=== PATIENT | female | born 1980 | race Caucasian/White ===

== ENCOUNTER 2017-05-09 21:18 | Emergency (ER) | payer OTHER ==
[~2017-05-09] VITALS: Ht 165.1 cm; Wt 76.1 kg
[~2017-05-09 21:18] MED LIST: AZITTAB PO; CHOLCAP5 PO; NAPR-1169 PO; SERT1TAB71 PO; SIMV10TA5 PO; SITA50TA5 PO; SPIR50TA3 PO; ZOLP10TA6 PO
[2017-05-09 21:30] VITALS: TEMP 36.7; Ht 165.1 cm; Wt 76.1 kg
[2017-05-09] MEDS ORDERED: SODIUM CHLORIDE 0.9% 1000ML 1,000 ML IV STA ×2 (21:51)
[2017-05-09] MEDS ORDERED: ONDANSETRON INJ 2 MG/ML 2 ML VIAL IV STA (21:51)
[2017-05-09] MEDS ORDERED: LIDOCAINE HCL 2% VISC SOLN 20 ML UDC PO STA (21:51)
[2017-05-09] MEDS ORDERED: ALUMINUM/MAGNESIUM SUSP 30 ML UDC PO STA (21:51)
[2017-05-09] MEDS ORDERED: MULT-1042 PO (22:09)
[2017-05-09] MEDS ORDERED: CALC-335 PO (22:09)
[2017-05-09] MEDS ORDERED: PRLSR20 PO (22:09)
--- NOTE | 2017-05-09 22:11 | DIAGNOSTIC IMAGING REPORT ---
CHEST ONE VIEW PORTABLE CLINICAL HISTORY: Atypical chest pain COMPARISON STUDY: 12/22/2012 FINDINGS: The cardiac and mediastinal contours are normal. There is no evidence of focal pulmonary consolidation. There is no evidence of failure. No pleural effusions are visualized.[ IMPRESSION: No active disease in the chest. Electronically signed by: Edgar Sawyer M.D. 05/09/2017 10:10 PM Dictated Date/Time: 05/09/2017 10:09 PM
[2017-05-09 22:19] LABS: BASO % 0.3 %; BASO ABS # 0.02 K/uL (0-0.2); COMPLETE YES; EOS % 1.8 %; HEMATOCRIT 37.4 % (37-47); IG% 0.1 %; LYMPH % 28.7 %; LYMPH ABS # 2.25 K/uL (1.2-3.4); MEAN CELL VOLUME 88.6 fL (80-100); MEAN CORPUSCULAR HEMOGLOBIN 30.6 pg (25-34); MEAN CORPUSCULAR HGB CONC 34.5 g/dl (32-36); MONO % 8.5 %; NEUT % 60.6 %; PLATELET COUNT 278 K/uL (130-400); RED BLOOD COUNT 4.22 M/uL (4.2-5.4); WHITE BLOOD COUNT 7.84 K/uL (4.8-10.8)
[2017-05-09 22:39] LABS: ALT/SGPT 20 U/L (12-78); BLOOD UREA NITROGEN 8 mg/dl (7-18); BUN/CREATININE RATIO 14.1 (10-20); CALCIUM 9.3 mg/dl (8.5-10.1); CARBON DIOXIDE 26 mmol/L (21-32); CHLORIDE 110 mmol/L (98-107); CREATININE 0.58 mg/dl (0.60-1.20); GLUCOSE 118 mg/dl (70-99); POTASSIUM 3.5 mmol/L (3.5-5.1); SODIUM 144 mmol/L (136-145)
[2017-05-09 22:44] LABS: ALKALINE PHOSPHATASE 62 U/L (45-117); AST/SGOT 17 U/L (15-37)
[2017-05-09 22:58] LABS: URINE APPEARANCE CLEAR (CLEAR); URINE BILIRUBIN NEG (NEG); URINE COLOR YELLOW; URINE NITRITE NEG (NEG); URINE SPECIFIC GRAVITY 1.018 (1.000-1.030); UROBILINOGEN NEG (NEG); ZZUR CULT IF INDIC CLEAN CATCH NO
[2017-05-09 23:02] LABS: MANUAL MICROSCOPIC REQUIRED? NO; REVIEW REQ? NO
[2017-05-09 23:57] VITALS: O2SAT 96
[2017-05-10] MEDS ORDERED: PANTOprazole SOD 40 MG TAB PO STA (00:26)
[2017-05-10] MEDS ORDERED: OMEP20TA PO (01:25)
[2017-05-10 01:36] VITALS: BP 103/83; PULSE 56; O2SAT 96
--- NOTE | 2017-05-10 01:46 | EMERGENCY ROOM VISIT NOTE ---
History First contact with patient: 21:40 Chief Complaint: ABDOMINAL PAIN Stated Complaint: HORRIBLE STOMACH PAIN History of Present Illness The patient is a 36 year old female who presents to the Emergency Room with complaints of epigastric right upper quadrant discomfort with nausea for the past few hours after eating part of a chicken sandwich. Patient had gastric bypass back in December of this year. No complications with this. She describes the pain as burning, ranging in severity 6 out of 10. Nothing makes it better or worse. Patient denies vomiting, diarrhea, back pain, fevers, cold symptoms. No history of similar symptoms in the past. Patient is requesting that her daughter translates. Review of Systems See HPI for pertinent positives & negatives. A total of 10 systems reviewed and were otherwise negative. Past Medical/Surgical History Diabetes, GERD, gastric bypass, hyperlipidemia Social History Smoking Status: Never Smoker Drug Use: none Marital Status: Housing Status: lives with family Current/Historical Medications Scheduled Calcium Citrate-Vitamin D (Citracal Petites/Vitamin), 1 TAB PO DAILY Multiple Vitamins W/ Minerals (Multi Vitamin and Mineral), 1 TAB PO DAILY Omeprazole (Prilosec), 20 MG PO DAILY Omeprazole (Omeprazole), 2 TAB PO DAILY Simvastatin (Zocor), 10 MG PO HS Allergies Coded Allergies: No Known Allergies (Unverified , 05/09/17) Physical Exam Vital Signs Date Time Temp Pulse Resp B/P (MAP) Pulse Ox O2 Delivery O2 Flow Rate FiO2 05/10/17 01:36 56 18 103/83 96 Room Air 05/10/17 00:05 60 05/09/17 23:57 66 18 111/68 98 Room Air 05/09/17 23:57 96 Room Air 05/09/17 23:57 96 Room Air 05/09/17 22:23 62 18 111/71 99 Room Air 05/09/17 21:30 36.7 74 20 124/84 99 Room Air Physical Exam VITALS: Vitals are noted on the nurse's note and reviewed by myself. Vital signs stable. GENERAL: Pleasant female, in no acute distress, nondiaphoretic, well-developed well-nourished. SKIN: The skin was without rashes, erythema, edema, or bruising. There is no tenting of the skin. Capillary reflex less than 2 seconds. HEAD: Normocephalic atraumatic. EARS: External auditory canals clear, tympanic membranes pearly linda without erythema or effusion bilaterally. EYES: Pupils equal round and reactive to light and accommodation. Conjunctivae without injection, sclerae without icterus. Extraocular movements intact. NOSE: Patent, turbinates without inflammation or discharge. MOUTH: Mucous membranes moist. Pharynx without erythema or exudate. Uvula midline. Airway patent. Tongue does not deviate. NECK: Supple without nuchal rigidity. No lymphadenopathy. No thyromegaly. Cervical spine is nontender. No JVD. HEART: Regular rate and rhythm LUNGS: Clear to auscultation bilaterally without wheezes, rales or rhonchi. No dullness to percussion. No retractions or accessory muscle use. ABDOMEN: Positive bowel sounds x 4. Normal tympanic percussion. Soft, tender to palpation right upper quadrant epigastric region, no CVA tenderness, without masses or organomegaly. No guarding or rebound tenderness. MUSCULOSKELETAL: No muscle atrophy, erythema, or edema noted. NEURO: Patient was alert and oriented to person place and time. Normal sensation to light and sharp touch. No focal neurological deficits. Medical Decision & Procedures Laboratory Results 05/09/17 22:00 Red Blood Count 4.22, Mean Corpuscular Volume 88.6, Mean Corpuscular Hemoglobin 30.6, Mean Corpuscular Hemoglobin Concent 34.5, Mean Platelet Volume 10.0, Neutrophils (%) (Auto) 60.6, Lymphocytes (%) (Auto) 28.7, Monocytes (%) (Auto) 8.5, Eosinophils (%) (Auto) 1.8, Basophils (%) (Auto) 0.3, Neutrophils # (Auto) 4.75, Lymphocytes # (Auto) 2.25, Monocytes # (Auto) 0.67, Eosinophils # (Auto) 0.14, Basophils # (Auto) 0.02 05/09/17 22:00 Test 05/09/17 22:00 05/10/17 00:35 White Blood Count 7.84 K/uL (4.8-10.8) Red Blood Count 4.22 M/uL (4.2-5.4) Hemoglobin 12.9 g/dL (12.0-16.0) Hematocrit 37.4 % (37-47) Mean Corpuscular Volume 88.6 fL (80-100) Mean Corpuscular Hemoglobin 30.6 pg (25-34) Mean Corpuscular Hemoglobin Concent 34.5 g/dl (32-36) Platelet Count 278 K/uL (130-400) Mean Platelet Volume 10.0 fL (7.4-10.4) Neutrophils (%) (Auto) 60.6 % Lymphocytes (%) (Auto) 28.7 % Monocytes (%) (Auto) 8.5 % Eosinophils (%) (Auto) 1.8 % Basophils (%) (Auto) 0.3 % Neutrophils # (Auto) 4.75 K/uL (1.4-6.5) Lymphocytes # (Auto) 2.25 K/uL (1.2-3.4) Monocytes # (Auto) 0.67 K/uL (0.11-0.59) Eosinophils # (Auto) 0.14 K/uL (0-0.5) Basophils # (Auto) 0.02 K/uL (0-0.2) RDW Standard Deviation 38.6 fL (36.4-46.3) RDW Coefficient of Variation 12.0 % (11.5-14.5) Immature Granulocyte % (Auto) 0.1 % Immature Granulocyte # (Auto) 0.01 K/uL (0.00-0.02) Urine Color YELLOW Urine Appearance CLEAR (CLEAR) Urine pH 5.0 (4.5-7.5) Urine Specific [place] 1.018 (1.000-1.030) Urine Protein NEG (NEG) Urine Glucose (UA) NEG (NEG) Urine Ketones NEG (NEG) Urine Occult Blood 2+ (NEG) Urine Nitrite NEG (NEG) Urine Bilirubin NEG (NEG) Urine Urobilinogen NEG (NEG) Urine Leukocyte Esterase TRACE (NEG) Urine WBC (Auto) 1-5 /hpf (0-5) Urine RBC (Auto) 0-4 /hpf (0-4) Urine Hyaline Casts (Auto) 1-5 /lpf (0-5) Urine Epithelial Cells (Auto) 10-20 /lpf (0-5) Urine Bacteria (Auto) NEG (NEG) Anion Gap 8.0 mmol/L (3-11) Est Creatinine Clear Calc Drug Dose 138.1 ml/min Estimated GFR () 138.4 Estimated GFR (Non- 119.4 BUN/Creatinine Ratio 14.1 (10-20) Calcium Level 9.3 mg/dl (8.5-10.1) Total Bilirubin 0.2 mg/dl (0.2-1) Direct Bilirubin < 0.1 mg/dl (0-0.2) Aspartate Amino Transf (AST/SGOT) 17 U/L (15-37) Alanine Aminotransferase (ALT/SGPT) 20 U/L (12-78) Alkaline Phosphatase 62 U/L (45-117) Total Protein 7.3 gm/dl (6.4-8.2) Albumin 4.0 gm/dl (3.4-5.0) Lipase 270 U/L (73-393) Troponin I < 0.015 ng/ml (0-0.045) Medications Administered Medications (Trade) Dose Ordered Sig/Oscar Route Start Time Stop Time Status Last Admin Dose Admin Lidocaine HCl (Viscous Lidocaine 2% Soln) 10 ml NOW STAT PO 05/09/17 21:51 05/09/17 21:54 DC 05/09/17 21:51 10 ML Al Hydroxide/Mg Hydroxide (Maalox Susp) 30 ml NOW STAT PO 05/09/17 21:51 05/09/17 21:54 DC 05/09/17 21:51 30 ML Sodium Chloride 1,000 ml @ 999 mls/hr Q1H1M STAT IV 05/09/17 21:51 05/09/17 22:51 DC 05/09/17 21:51 999 MLS/HR Sodium Chloride 1,000 ml @ 125 mls/hr Q8H STAT IV 05/09/17 21:51 05/10/17 05:50 05/09/17 21:51 125 MLS/HR Ondansetron HCl (Zofran Inj) 4 mg NOW STAT IV 05/09/17 21:51 05/09/17 21:54 DC 05/09/17 21:51 4 MG Pantoprazole Sodium (Protonix Tab) 40 mg NOW STAT PO 05/10/17 00:26 05/10/17 00:27 DC 05/10/17 01:00 40 MG ED Course Prior records/ancillary studies reviewed. Triage Nursing notes reviewed. Additional history obtained from family. The patient's history was concerning for epigastric abdominal pain. Differential diagnosis: Etiologies such as cardiac, appendicitis, diverticulitis, PUD, biliary pathology , UTI, pancreatitis, obstruction, mesenteric ischemia, aortic pathology, infections, inflammatory bowel disease, renal colic, as well as others were entertained. Physical examination findings: As above. ER treatment provided: GI cocktail, IV fluids On reassessment the patient felt better. Diagnostics interpreted by me: ECG: Normal sinus, normal intervals, T wave in lead 3, no other acute ST-T wave changes, rate of 64. Impression normal sinus rhythm interpreted by myself The labs revealed 2 negative troponins that were greater than 2 hours apart, negative leukocytosis No Leukocytosis Imaging studies: CHEST ONE VIEW PORTABLE CLINICAL HISTORY: Atypical chest pain COMPARISON STUDY: 12/22/2012 FINDINGS: The cardiac and mediastinal contours are normal. There is no evidence of focal pulmonary consolidation. There is no evidence of failure. No pleural effusions are visualized.[ IMPRESSION: No active disease in the chest. Ultrasound negative for cholecystitis per radiology Electronically signed by: Edgar Sawyer M.D. Exam and history seem consistent with epigastric discomfort most likely related to gastritis. Patient felt much better after being medicated as above. Patient was neurovascularly and neurologically intact. She did not have acute abdomen on exam. She is tolerating fluids. She is advised to take medications as directed and to follow-up family care in a few days or here in the ER sooner for chest pain, difficulty breathing, abdominal pain, worsening signs or symptoms or as needed.By the evaluation outlined above emergent etiologies such as appendicitis, diverticulitis, PUD, biliary pathology, UTI, pancreatitis, obstruction, mesenteric ischemia, aortic pathology, infections, inflammatory bowel disease, renal colic, as well as others were deemed relatively unlikely. The pt informed about the findings as listed above. All questions were answered and pleased with the treatment. Return instructions were outlined and the patient was discharged in stable condition. Outpatient prescription management: Omeprazole 40 mg Referral: The patient was referred back to their primary care physician for follow-up in 2 to 3 days for a recheck of the current condition. Case reviewed with my attending Medical Decision As above Impression Primary Impression: Abdominal discomfort, epigastric Additional Impression: Gastritis Departure Information Prescriptions Omeprazole (OMEPRAZOLE) 20 Mg Tab 2 TAB PO DAILY for 14 Days, #28 TAB 1 Refill Prov: Wendy Mora ., LINDA 05/10/17 Referrals Kailyn Walsh DO (PCP) Patient Instructions My [facility] Problem Qualifiers
--- NOTE | 2017-05-10 05:34 | DIAGNOSTIC IMAGING REPORT ---
GALLBLADDER-ABD LIMITED CLINICAL HISTORY: 36 years-old Female presenting with ruq pain. TECHNIQUE: Real-time grayscale and limited color Doppler ultrasound imaging of the abdomen limited to the right upper quadrant was performed. COMPARISON: 12/11/2011. FINDINGS: Pancreas: Visualized portions of the pancreatic head and body normal. Liver: Mildly hyperechogenic parenchyma, although the right hemidiaphragm remains visible, likely indicating mild steatosis. The liver measures 17.3 cm in maximal sagittal dimension. No sonographic evidence of hepatic mass. Main portal vein patent with normal directional flow. Biliary: No intrahepatic biliary ductal dilatation. Common bile duct measures up to 3-5 mm in diameter. Gallbladder: No evidence of gallstones, gallbladder wall thickening, gallbladder distention, or pericholecystic fluid or inflammatory change. Right kidney: Normal in appearance and size, measuring 13.2 cm. No hydronephrosis. Ascites: None. IMPRESSION: 1. Suggestion of mild hepatic steatosis. Mild hepatomegaly. These findings are unchanged since 2011. 2. No cholelithiasis or cholecystitis. Electronically signed by: Rene Giron M.D. 05/10/2017 5:33 AM Dictated Date/Time: 05/10/2017 5:31 AM
== END 2017-05-10 01:43 | disposition home or self-care (01) ==
LOC: C.EDB 21:19
DX: R10.13 Epigastric pain (principal); K29.70 Gastritis, unspecified, without bleeding; E11.9 Type 2 diabetes mellitus without complications; K21.9 Gastro-esophageal reflux disease without esophagitis; E78.5 Hyperlipidemia, unspecified

== ENCOUNTER → 2017-06-11 | Outpatient (CLI) | payer OTHER ==
[~2017-06-11] MED LIST changes: -AZITTAB PO; +CALC-335 PO; -CHOLCAP5 PO; +MULT-1042 PO; -NAPR-1169 PO; +OMEP20TA PO; +PRLSR20 PO; -SERT1TAB71 PO; -SITA50TA5 PO; -SPIR50TA3 PO; -ZOLP10TA6 PO
--- NOTE | 2017-06-11 09:44 | DIAGNOSTIC IMAGING REPORT ---
GI SERIES W/O KUB CLINICAL HISTORY: 36 years-old Female with ABD PAIN. Acute epigastric abdominal pain after eating. History of prior gastric bypass December 2016 TECHNIQUE: A standard air contrast upper GI series was performed following administration of barium and effervescent crystals. Multiple spot fluoroscopic images were obtained and provided for review. COMPARISON STUDY: None available FLUOROSCOPY TIME: 1.3 minutes. FINDINGS: The patient swallowed barium without difficulty. No aspiration was definitively visualized. The esophagus distended normally with barium and effervescent crystals. No strictures, mucosal ulcerations, or intraluminal mass lesions were identified involving the esophagus. There was no significant gastroesophageal reflux. Barium was seen to flow freely through the gastroesophageal junction. No active reflux was identified. Evaluation of the stomach demonstrates no gastric mucosal irregularity or filling defect. Postoperative changes compatible with prior Bruno-en-Y gastric bypass are seen. No evidence of anastomotic dehiscence, leaking or stricturing. The gastrojejunal and jejunojejunal anastomosis appear intact. No reflux into the excluded biliary limb identified on this study. IMPRESSION: 1. Prior Bruno-en-Y gastric bypass without evidence of anastomotic dehiscence, anastomotic leaking or stricturing. 2. No reflux identified. The above report was generated using voice recognition software. It may contain grammatical, syntax or spelling errors. Electronically signed by: Jasper Perales M.D. 06/11/2017 9:38 AM Dictated Date/Time: 06/11/2017 9:32 AM
== END | disposition home or self-care (01) ==
LOC: C.RAD 08:49
PROVIDERS: ATTEND Internal Medicine
DX: R10.13 Epigastric pain (principal); Z98.84 Bariatric surgery status; K91.2 Postsurgical malabsorption, not elsewhere classified

== ENCOUNTER 2017-06-17 15:20 | Emergency (ER) | payer OTHER ==
[~2017-06-17] VITALS: Ht 162.6 cm; Wt 72.9 kg
[2017-06-17 15:23] VITALS: TEMP 36.6; Ht 162.6 cm; Wt 72.9 kg
[2017-06-17] MEDS ORDERED: ALUMINUM/MAGNESIUM SUSP 30 ML UDC PO STA (15:44)
[2017-06-17] MEDS ORDERED: ONDANSETRON INJ 2 MG/ML 2 ML VIAL IV STA (15:44)
--- NOTE | 2017-06-17 16:13 | DIAGNOSTIC IMAGING REPORT ---
CHEST ONE VIEW PORTABLE HISTORY: 36 years-old Female ABDOMINAL PAIN/GI acute generalized abdominal pain COMPARISON: Chest radiograph 05/09/2017 TECHNIQUE: Portable upright AP view of the chest FINDINGS: Cardiomediastinal and hilar silhouettes are within normal limits. No pneumothorax, pleural effusion, focal airspace consolidation or overt pulmonary edema. Bones of the chest are grossly intact. IMPRESSION: No acute cardiopulmonary process. The above report was generated using voice recognition software. It may contain grammatical, syntax or spelling errors. Electronically signed by: Jasper Perales M.D. 06/17/2017 4:12 PM Dictated Date/Time: 06/17/2017 4:11 PM
[2017-06-17 16:38] LABS: URINE APPEARANCE CLEAR (CLEAR); URINE BILIRUBIN NEG (NEG); URINE COLOR DK YELLOW; URINE NITRITE NEG (NEG); URINE PH 5.5 (4.5-7.5); URINE SPECIFIC GRAVITY 1.016 (1.000-1.030); UROBILINOGEN NEG (NEG)
[2017-06-17 16:38] LABS: BASO % 0.2 %; BASO ABS # 0.02 K/uL (0-0.2); COMPLETE YES; EOS % 0.7 %; HEMATOCRIT 39.5 % (37-47); IG% 0.2 %; LYMPH % 22.4 %; MEAN CELL VOLUME 87.6 fL (80-100); MEAN CORPUSCULAR HEMOGLOBIN 30.6 pg (25-34); MEAN CORPUSCULAR HGB CONC 34.9 g/dl (32-36); MEAN PLATELET VOLUME 10.2 fL (7.4-10.4); MONO % 3.6 %; NEUT % 72.9 %; PLATELET COUNT 277 K/uL (130-400); RED BLOOD COUNT 4.51 M/uL (4.2-5.4); WHITE BLOOD COUNT 9.36 K/uL (4.8-10.8)
[2017-06-17 16:49] LABS: MANUAL MICROSCOPIC REQUIRED? NO; REVIEW REQ? NO
[2017-06-17 16:55] LABS: INR 1.1 (0.9-1.1); PROTHROMBIN TIME (PATIENT) 11.9 SECONDS (9.0-12.0)
[2017-06-17 16:59] LABS: ALT/SGPT 19 U/L (12-78); BLOOD UREA NITROGEN 7 mg/dl (7-18); BUN/CREATININE RATIO 13.6 (10-20); CALCIUM 9.3 mg/dl (8.5-10.1); CARBON DIOXIDE 27 mmol/L (21-32); CHLORIDE 106 mmol/L (98-107); CREATININE 0.53 mg/dl (0.60-1.20); GLUCOSE 93 mg/dl (70-99); POTASSIUM 3.4 mmol/L (3.5-5.1); SODIUM 140 mmol/L (136-145)
[2017-06-17 17:04] LABS: ALKALINE PHOSPHATASE 63 U/L (45-117); AST/SGOT 17 U/L (15-37)
--- NOTE | 2017-06-17 17:04 | DIAGNOSTIC IMAGING REPORT ---
ABD/PELVIS NO IV OR ORAL CONT HISTORY: 36 years-old Female left flank pain acute left-sided flank pain. Initial exam. History of hepatosplenomegaly and hepatic steatosis. History of prior Bruno-en-Y gastric bypass. COMPARISON: Upper GI series 06/11/2017, abdominal ultrasound 05/09/2017 and 12/11/2011 TECHNIQUE: Multiple axial CT images of the abdomen and pelvis were obtained without contrast. FINDINGS: Imaged lung bases are clear. There is no pneumoperitoneum. Imaged inferior cardiac chambers are unremarkable. Evaluation of the solid abdominal organs is limited without the use of contrast. Within the limitations of the study, the liver is mildly enlarged without focal mass or intrahepatic biliary ductal dilation. No evidence of fatty infiltration. Spleen is upper limits of normal at 13 cm in length. Pancreas, gallbladder and adrenal glands are within normal limits. Kidneys, ureters and urinary bladder are unremarkable. There is an intrauterine device present within the mid and fundal uterus which appears to be in satisfactory position. No adnexal mass lesions identified. No significant free pelvic fluid identified. The abdominal aorta is normal in both course and caliber. No bulky adenopathy. Postsurgical changes of prior Bruno-en-Y gastric bypass. No evidence of bowel obstruction. Small air-fluid level of the jejunojejunal anastomosis, likely physiologic. The excluded biliary limb is predominantly collapsed. The large bowel is within normal limits. The appendix is dilated and fluid-filled measuring up to 1.7 x 1.7 cm demonstrating peripheral calcification as seen on image 273 of series 3, however there are no associated inflammatory changes involving the appendix. No perforation or abscess. Soft tissues are unremarkable. Bones appear intact. A few Schmorl's nodes of the thoracic spine. IMPRESSION: 1. Distended fluid-filled appendix measuring up to 1.7 cm with peripheral calcifications is noted without associated surrounding inflammatory changes or evidence of perforation. Differential considerations would include an appendiceal mucocele or mucinous neoplasm such as a mucinous cystadenoma or mucinous cystadenocarcinoma. Surgical consultation recommended. 2. Prior Bruno-en-Y gastric bypass without evidence of complication or bowel obstruction. 3. No renal calculi or hydronephrosis. 4. IUD in situ. The above report was generated using voice recognition software. It may contain grammatical, syntax or spelling errors. Electronically signed by: Jasper Perales M.D. 06/17/2017 5:03 PM Dictated Date/Time: 06/17/2017 4:46 PM
[2017-06-17] MEDS ORDERED: ACETAMINOPHEN 500 MG TAB PO STA (17:26)
--- NOTE | 2017-06-17 17:43 | EMERGENCY ROOM VISIT NOTE ---
History Report prepared by Tia: Monserrat Wu Under the Supervision of: Dr. Yonatan Wilson D.O. 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 The customer and the fax machine repairer got into a disagreement with the patient and she felt that they were ganging up on her. She became upset and started to cry. The patient suddenly developed left flank pain that she states feels like needles stabbing her. She also has some epigastric abdominal pain. The patient reports feeling tired. She takes Prilosec daily. 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 A total of 10 systems reviewed and were otherwise negative. Past Medical & Surgical Medical Problems: (1) Diabetes (2) Hyperlipidemia (3) Infected skin lesion Family History Patient reports no known family medical history. Social History Smoking Status: Never Smoker Smokeless Tobacco Use: No Alcohol Use: none Drug Use: none Marital Status: Housing Status: lives with family Current/Historical Medications Scheduled Calcium Citrate-Vitamin D (Citracal Petites/Vitamin), 1 TAB PO DAILY Multiple Vitamins W/ Minerals (Multi Vitamin and Mineral), 1 TAB PO DAILY Omeprazole (Prilosec), 20 MG PO BID Simvastatin (Zocor), 10 MG PO HS Allergies Coded Allergies: No Known Allergies (Unverified , 06/17/17) Physical Exam Vital Signs Date Time Temp Pulse Resp B/P (MAP) Pulse Ox O2 Delivery O2 Flow Rate FiO2 06/17/17 17:53 61 16 113/79 98 06/17/17 15:23 36.6 69 18 132/91 98 Room Air Physical Exam GENERAL: Patient is awake, alert, mildly anxious and tearful appearing. EYES: The conjunctivae are clear. The pupils are round and reactive. EARS, NOSE, MOUTH AND THROAT: The nose is without any evidence of any deformity. Mucous membranes are moist tongue is midline NECK: The neck is nontender and supple. RESPIRATORY: Normal respiratory effort is noted there is no evidence of wheezing rhonchi or rales CARDIOVASCULAR: Regular rate and rhythm noted there no murmurs rubs or gallops normal S1 normal S2 GASTROINTESTINAL: The abdomen is mildly distended but soft. Bowel sounds are present in all quadrants. Epigastric TTP, no guarding or rigidity. BACK: Bilateral CVA TTP. No midline tenderness or or step-off noted range of motion in flexion extension as well as rotation no signs of muscle spasm noted MUSCULOSKELETAL/EXTREMITIES: There is no evidence of gross deformity full range of motion is noted in the hips and shoulders SKIN: There is no obvious evidence of any rash. There are no petechiae, pallor or cyanosis noted. NEUROLOGIC: Patient is awake alert and oriented x3 strength is symmetric patellar reflexes are 2+ bilaterally Medical Decision & Procedures ER Provider Diagnostic Interpretation: Radiology results as stated below per my review and radiologist interpretation: CHEST ONE VIEW PORTABLE HISTORY: 36 years-old Female ABDOMINAL PAIN/GI acute generalized abdominal pain COMPARISON: Chest radiograph 05/09/2017 TECHNIQUE: Portable upright AP view of the chest FINDINGS: Cardiomediastinal and hilar silhouettes are within normal limits. No pneumothorax, pleural effusion, focal airspace consolidation or overt pulmonary edema. Bones of the chest are grossly intact. IMPRESSION: No acute cardiopulmonary process. The above report was generated using voice recognition software. It may contain grammatical, syntax or spelling errors. Electronically signed by: Jasper Perales M.D. 06/17/2017 4:12 PM Dictated Date/Time: 06/17/2017 4:11 PM ABD/PELVIS NO IV OR ORAL CONT HISTORY: 36 years-old Female left flank pain acute left-sided flank pain. Initial exam. History of hepatosplenomegaly and hepatic steatosis. History of prior Bruno-en-Y gastric bypass. COMPARISON: Upper GI series 06/11/2017, abdominal ultrasound 05/09/2017 and 12/11/2011 TECHNIQUE: Multiple axial CT images of the abdomen and pelvis were obtained without contrast. FINDINGS: Imaged lung bases are clear. There is no pneumoperitoneum. Imaged inferior cardiac chambers are unremarkable. Evaluation of the solid abdominal organs is limited without the use of contrast. Within the limitations of the study, the liver is mildly enlarged without focal mass or intrahepatic biliary ductal dilation. No evidence of fatty infiltration. Spleen is upper limits of normal at 13 cm in length. Pancreas, gallbladder and adrenal glands are within normal limits. Kidneys, ureters and urinary bladder are unremarkable. There is an intrauterine device present within the mid and fundal uterus which appears to be in satisfactory position. No adnexal mass lesions identified. No significant free pelvic fluid identified. The abdominal aorta is normal in both course and caliber. No bulky adenopathy. Postsurgical changes of prior Bruno-en-Y gastric bypass. No evidence of bowel obstruction. Small air-fluid level of the jejunojejunal anastomosis, likely physiologic. The excluded biliary limb is predominantly collapsed. The large bowel is within normal limits. The appendix is dilated and fluid-filled measuring up to 1.7 x 1.7 cm demonstrating peripheral calcification as seen on image 273 of series 3, however there are no associated inflammatory changes involving the appendix. No perforation or abscess. Soft tissues are unremarkable. Bones appear intact. A few Schmorl's nodes of the thoracic spine. IMPRESSION: 1. Distended fluid-filled appendix measuring up to 1.7 cm with peripheral calcifications is noted without associated surrounding inflammatory changes or evidence of perforation. Differential considerations would include an appendiceal mucocele or mucinous neoplasm such as a mucinous cystadenoma or mucinous cystadenocarcinoma. Surgical consultation recommended. 2. Prior Bruno-en-Y gastric bypass without evidence of complication or bowel obstruction. 3. No renal calculi or hydronephrosis. 4. IUD in situ. The above report was generated using voice recognition software. It may contain grammatical, syntax or spelling errors. Electronically signed by: Jasper Perales M.D. 06/17/2017 5:03 PM Dictated Date/Time: 06/17/2017 4:46 PM Laboratory Results 06/17/17 16:20 Red Blood Count 4.51, Mean Corpuscular Volume 87.6, Mean Corpuscular Hemoglobin 30.6, Mean Corpuscular Hemoglobin Concent 34.9, Mean Platelet Volume 10.2, Neutrophils (%) (Auto) 72.9, Lymphocytes (%) (Auto) 22.4, Monocytes (%) (Auto) 3.6, Eosinophils (%) (Auto) 0.7, Basophils (%) (Auto) 0.2, Neutrophils # (Auto) 6.81, Lymphocytes # (Auto) 2.10, Monocytes # (Auto) 0.34, Eosinophils # (Auto) 0.07, Basophils # (Auto) 0.02 06/17/17 16:20 Test 06/17/17 16:00 06/17/17 16:20 Urine Color DK YELLOW Urine Appearance CLEAR (CLEAR) Urine pH 5.5 (4.5-7.5) Urine Specific [place] 1.016 (1.000-1.030) Urine Protein NEG (NEG) Urine Glucose (UA) NEG (NEG) Urine Ketones 1+ (NEG) Urine Occult Blood NEG (NEG) Urine Nitrite NEG (NEG) Urine Bilirubin NEG (NEG) Urine Urobilinogen NEG (NEG) Urine Leukocyte Esterase NEG (NEG) Urine Test NEG (NEG) White Blood Count 9.36 K/uL (4.8-10.8) Red Blood Count 4.51 M/uL (4.2-5.4) Hemoglobin 13.8 g/dL (12.0-16.0) Hematocrit 39.5 % (37-47) Mean Corpuscular Volume 87.6 fL (80-100) Mean Corpuscular Hemoglobin 30.6 pg (25-34) Mean Corpuscular Hemoglobin Concent 34.9 g/dl (32-36) Platelet Count 277 K/uL (130-400) Mean Platelet Volume 10.2 fL (7.4-10.4) Neutrophils (%) (Auto) 72.9 % Lymphocytes (%) (Auto) 22.4 % Monocytes (%) (Auto) 3.6 % Eosinophils (%) (Auto) 0.7 % Basophils (%) (Auto) 0.2 % Neutrophils # (Auto) 6.81 K/uL (1.4-6.5) Lymphocytes # (Auto) 2.10 K/uL (1.2-3.4) Monocytes # (Auto) 0.34 K/uL (0.11-0.59) Eosinophils # (Auto) 0.07 K/uL (0-0.5) Basophils # (Auto) 0.02 K/uL (0-0.2) RDW Standard Deviation 39.2 fL (36.4-46.3) RDW Coefficient of Variation 12.2 % (11.5-14.5) Immature Granulocyte % (Auto) 0.2 % Immature Granulocyte # (Auto) 0.02 K/uL (0.00-0.02) Prothrombin Time 11.9 SECONDS (9.0-12.0) Prothromb Time International Ratio 1.1 (0.9-1.1) Activated Partial Thromboplast Time 25.3 SECONDS (21.0-31.0) Partial Thromboplastin Ratio 1.0 Anion Gap 8.0 mmol/L (3-11) Est Creatinine Clear Calc Drug Dose 145.0 ml/min Estimated GFR () 142.6 Estimated GFR (Non- 123.0 BUN/Creatinine Ratio 13.6 (10-20) Calcium Level 9.3 mg/dl (8.5-10.1) Total Bilirubin 0.4 mg/dl (0.2-1) Direct Bilirubin < 0.1 mg/dl (0-0.2) Aspartate Amino Transf (AST/SGOT) 17 U/L (15-37) Alanine Aminotransferase (ALT/SGPT) 19 U/L (12-78) Alkaline Phosphatase 63 U/L (45-117) Troponin I < 0.015 ng/ml (0-0.045) Total Protein 7.9 gm/dl (6.4-8.2) Albumin 4.1 gm/dl (3.4-5.0) Lipase 220 U/L (73-393) Laboratory results per my review. Medications Administered Medications (Trade) Dose Ordered Sig/Oscar Route Start Time Stop Time Status Last Admin Dose Admin Ondansetron HCl (Zofran Inj) 4 mg NOW STAT IV 06/17/17 15:44 06/17/17 15:46 DC 06/17/17 16:27 4 MG Al Hydroxide/Mg Hydroxide (Maalox Susp) 30 ml NOW STAT PO 06/17/17 15:44 06/17/17 15:46 DC 06/17/17 16:27 30 ML Acetaminophen (Tylenol Tab) 1,000 mg NOW STAT PO 06/17/17 17:26 06/17/17 17:27 DC 06/17/17 17:37 1,000 MG ECG Indication: abdominal pain Rate (beats per minute): 63 Rhythm: normal sinus Findings: no acute ischemic change, no ectopy Comparison ECG Date: 05/09/17 Change: no significant change ED Course 1528: The patient was evaluated in room A8. A complete history and physical examination were performed. 1539: The patient was move to room B10. 1544: Maalox 30 ml PO, Zofran 4 mg IV 1716: The patient is resting more comfortably. 1721: I discussed the results and treatment plan with the patient and her with the help of an instrument setter. I answered all pertaining questions that they had. They expressed understanding and verbalized agreement. The patient will be discharged home. 1726: Tylenol 1000 mg PO 1737: I discussed the case with Dr. Sanchez of general surgery. She will follow- up with the patient in the office. Medical Decision Differential diagnosis: Etiologies such as renal colic, appendicitis, diverticulitis, mesenteric ischemia, aortic pathology, infections, inflammatory bowel disease, PUD, biliary pathology, UTI, as well as others were entertained. Nursing notes reviewed. The patient is a 36-year-old female who presented to the emergency department with her significant other after she had an episode of left flank pain. The patient describes the pain as a sharp stabbing pain in her left kidney. The patient's physical exam did not appear to be consistent with an acute surgical abdomen. The patient was treated with medications for nausea and pain in the emergency department. I discussed the patient's laboratory and radiographic studies with her and her significant other via the insurance claims analyst. I also discussed her case with the on-call general surgeon to set up a follow-up appointment so the patient can have the abnormalities noted in the right lower quadrant addressed but I do not feel this is what is causing her pain today. The patient was encouraged to rest and any strenuous activities. She was also encouraged to continue all medications as prescribed and follow-up with her primary care physician as well as the on-call surgeon as scheduled. Otherwise she was encouraged to return to the emergency department immediately if symptoms change worsen or the need arises. Medication Reconcilliation Current Medication List: was personally reviewed by me Blood Pressure Screening Patient's blood pressure: Elevated blood pressure Blood pressure disposition: Elevated BP felt to be situational Consults Time Called: 1733 Consulting Physician: Dr. Sanchez Returned Call: 1736 I discussed the case with Dr. Sanchez of general surgery. She will follow-up with the patient in the office. Impression Primary Impression: LUQ abdominal pain Additional Impressions: Abnormal computed tomography of abdomen and pelvis Left flank pain Scribe Attestation The scribe's documentation has been prepared under my direction and personally reviewed by me in its entirety. I confirm that the note above accurately reflects all work, treatment, procedures, and medical decision making performed by me. Departure Information Dispostion Home / Self-Care Referrals No Doctor, Assigned (PCP) Forms HOME CARE DOCUMENTATION FORM, IMPORTANT VISIT INFORMATION Patient Instructions My [facility] Additional Instructions Continue using Tylenol as directed for pain. Follow-up with the general surgeon as scheduled. Continue all medications as prescribed. Rest and avoid any strenuous activity. Return to the emergency department if symptoms change worsen or the need arises. Problem Qualifiers
[2017-06-17 17:53] VITALS: BP 113/79; PULSE 61; O2SAT 98
== END 2017-06-17 17:54 | disposition home or self-care (01) ==
LOC: C.EDB 15:21
DX: R10.12 Left upper quadrant pain (principal); R10.30 Lower abdominal pain, unspecified; R93.5 Abnormal findings on diagnostic imaging of other abdominal regions, including retroperitoneum; E11.9 Type 2 diabetes mellitus without complications; E78.5 Hyperlipidemia, unspecified; Z86.19 Personal history of other infectious and parasitic diseases; Z79.899 Other long term (current) drug therapy

== ENCOUNTER → 2017-07-13 | Day surgery (SDC) | payer OTHER ==
[2017-07-07 08:47] VITALS: BMI 32.0
[~2017-07-13] VITALS: Ht 152.4 cm; Wt 76.0 kg
[~2017-07-13] MED LIST changes: +ATROPINE SULFATE 0.1 MG/ML 5ML SYR IV PRN; +BUPIVACAINE 0.5 % 5 MG/1 ML MPF 30ML VIAL ONE; +CEFAZOLIN 2000MG IV PUSH 10 ML IV SCH; +CEFAZOLIN SOD 1 GM VIAL ONE; +DEXAMETHASONE SOD INJ 4 MG/ML VIAL ONE; +EpHEDrine SULFATE INJ 50 MG/ML AMP IV PRN; +FENTANYL CITRATE INJ 50 MCG/1 ML 2 ML VIAL IV PRN; +FENTANYL CITRATE INJ 50 MCG/1 ML 2 ML VIAL ONE; +GLYCOPYRROLATE INJ 0.2 MG/ML VIAL ONE; +HEPARIN SOD (PORCINE) 1000 UNIT/ML 10 ML VIAL ONE; +LACTATED RINGER'S 1000ML 1,000 ML IV SCH; +LIDOCAINE HCL 2% 2 ML VIAL (20MG/ML) ONE; +MIDAZOLAM HCL 1 MG/ML 2ML VIAL ONE; +MoRPHine SULFATE 4 MG/ML 1 ML CARP\\VIAL IV PRN; +NEOSTIGMINE METHYLSULFATE 5 MG/5 ML SYR ONE; -OMEP20TA PO; +ONDANSETRON INJ 2 MG/ML 2 ML VIAL IV PRN; +ONDANSETRON INJ 2 MG/ML 2 ML VIAL ONE; +OXYCODONE/ACETAMINOPHEN 5-325 TAB PO PRN; +PROPOFOL IV EMULSION 10 MG/ML 20 ML VIAL IV ONE; +ROCURONIUM BROMIDE 10 MG/ML 5 ML VIAL IV ONE; +SODIUM CHLORIDE 0.9% 1000ML 1,000 ML IV SCH
[2017-07-13 05:54] VITALS: BP 113/73; PULSE 63; TEMP 36.9; O2SAT 100; Ht 152.4 cm; Wt 76.0 kg
--- NOTE | 2017-07-13 07:04 | History & Physical Bridge Note ---
H&P Re-Evaluation Bridge Note: I have examined the patient, reviewed the History & Physical and in the interval since the performance of the History & Physical I have noted the following changes of clinical significance: No changes noted
--- NOTE | 2017-07-13 08:15 | [facility] Post Operative Brief Note ---
Immediate Operative Summary Operative Date Jul 13, 2017. Pre-Operative Diagnosis Appendix disease Post-Operative Diagnosis Appendix disease Procedure(s) Performed Laparoscopic appendectomy Surgeon Dr. Arnol Becerril Dope Weigh Operator Surgeon(s) None Estimated Blood Loss 5 mL Findings See dictation Specimens Permanent specimens A: Appendix Drains None Anesthesia GeneraL Complication(s) None Disposition Recovery Room / PACU
--- NOTE | 2017-07-13 08:18 | Discharge Instructions ---
Discharge Instructions Date of Service Jul 13, 2017. Admission Reason for Admission: Appendix Disease Discharge Discharge Diagnosis / Problem: Same Discharge Goals Goal(s): Improve disease control Activity Recommendations Activity Limitations: per Instructions/Follow-up section Lifting Limitations: no more than 10 pounds (for 2 weeks) Shower/Bathe: tomorrow (Shower only) . Instructions / Follow-Up Instructions / Follow-Up Post-Surgical ~ Discharge Instructions Activity Recommendations: - lifting limitation: (10 pounds for 2 weeks), - exercise/sex/sports limit: (nonstrenuous for 2 weeks), - driving or machine use limit: (none for 1 week), - Shower/bathe limit: (may shower beginning tomorrow) Diet: - Resume previous diet SPECIAL CARE INSTRUCTIONS: - May shower in 24 hours. Let water run over area and pat dry. - Leave steri strips on for one week. - Call the surgeon's office with any questions or concerns - - (ex. temperature higher than 101 degrees F, excessive bleeding or pain). MEDICATIONS: - Resume previous medications unless instructed otherwise by your surgeon. - Ibuprofen 600 mg every 6 hours with food - Percocet 1 every 4 hours, as needed for pain FOLLOW UP VISIT: - If not already scheduled, please call the office to schedule a two week follow-up appointment. Office number Current Hospital Diet Patient's current hospital diet: Discharge Diet Recommended Diet: Regular Diet Procedures Procedures Performed: Laparoscopic appendectomy Pending Studies Studies pending at discharge: yes List of pending studies: Pathology Medical Emergencies . Who to Call and When: Medical Emergencies: If at any time you feel your situation is an emergency, please call 911 immediately. . Non-Emergent Contact Non-Emergency issues call your: Primary Care Provider, Surgeon Call Non-Emergent contact if: your pain is worsening, wound has increased drainage, wound has increased redness . "Provider Documentation" section prepared by Arnol Becerril. . VTE Core Measure Inpt VTE Proph given/why not?: Treatment not indicated
--- NOTE | 2017-07-13 08:39 | OPERATIVE REPORT ---
DATE OF OPERATION: 07/13/2017 PREOPERATIVE DIAGNOSIS: Abnormal dilation of the appendix. POSTOPERATIVE DIAGNOSIS: Same. PROCEDURE: Laparoscopic appendectomy. SURGEON: Dr. Becerril. FINDINGS: The appendix measured almost 2 cm beginning 0.5 cm above the base and extending out to the tip. The distal tip of the appendix for about a cm was normal size. There was no surrounding inflammation. There was no evidence of acute appendicitis. There was no perforation. Her uterus was mildly enlarged as well. TECHNIQUE: The patient was given a general anesthetic and the area was prepped and draped in the usual sterile fashion. Transverse incision was made below the umbilicus, carried down through the subcutaneous tissue to the fascia which was grasped with 2 Elisabet clamps and incised between. The peritoneum was identified, incised, and the introducer was placed bluntly. The abdomen was then insufflated to a pressure of 15 mmHg with carbon dioxide. The lower midline introducer was placed under direct vision. Traction was placed superomedially on the cecum and the appendix was easily identified. The left lower quadrant introducer was placed under direct vision. Traction was placed anteriorly on the appendix and that allowed me to visualize the mesoappendix. I was then able to create a window between the base of the appendix, near the junction with the cecum and the mesoappendix. The mesoappendix was then divided using the Endo-OSVALDO stapler. That allowed me to confirm that I was at the base of the appendix. Because the dilation of the appendix extended almost to the cecum, I then amputated the appendix, taking a cuff of cecum with the appendix, making sure not to encroach on the ileocecal valve. That was performed with an Endo-OSVALDO stapler. The appendix was placed into an Endobag and brought out through the left lower quadrant introducer site. That introducer was replaced. The right lower quadrant was irrigated, the irrigation was removed. The staple lines were inspected and there was no bleeding. It was further irrigated and irrigation removed. Any irrigation that entered the right upper quadrant where the pelvis was removed. The gas was allowed to escape and the introducers were removed. The fascia of the umbilical introducer site was closed with interrupted 0 Vicryl and the skin of all the incisions was closed with 4-0 Monocryl in either an interrupted or running subcuticular fashion. The skin was anesthetized with 0.5% Marcaine. The skin was cleansed, dried, benzoin placed, Steri-Strips applied. Estimated blood loss was 5 mL. Sponge, needle and instrument counts were correct prior to closure. The patient tolerated the surgical procedure without complication and was transferred to recovery. I attest to the content of the Intraoperative Record and any orders documented therein. Any exception s are noted below.
--- NOTE | 2017-07-13 09:13 | Anesthesiology Progress Note ---
Anesthesia Post Op Note Date & Time Jul 13, 2017 at 09:13 Vital Signs Pain Intensity: 4 Vital Signs Past 12 Hours Date Time Temp Pulse Resp B/P (MAP) Pulse Ox O2 Delivery O2 Flow Rate FiO2 07/13/17 09:07 60 14 98 07/13/17 09:07 60 14 07/13/17 09:06 141/99 07/13/17 09:05 36.3 07/13/17 09:02 59 17 98 07/13/17 09:02 59 17 07/13/17 09:01 136/94 07/13/17 08:59 60 16 96 07/13/17 08:59 60 16 07/13/17 08:56 138/95 07/13/17 08:55 120/83 07/13/17 08:54 61 15 98 07/13/17 08:54 59 15 07/13/17 08:53 69 16 99 07/13/17 08:53 62 16 07/13/17 08:48 62 13 100 07/13/17 08:48 63 13 07/13/17 08:46 136/94 07/13/17 08:43 61 12 07/13/17 08:43 61 12 100 07/13/17 08:42 61 18 100 07/13/17 08:42 61 18 07/13/17 08:41 140/94 07/13/17 08:37 62 12 100 07/13/17 08:37 61 12 07/13/17 08:36 136/93 07/13/17 08:32 52 14 100 07/13/17 08:32 52 14 07/13/17 08:31 145/91 07/13/17 08:27 59 11 07/13/17 08:27 66 11 137/88 100 07/13/17 08:23 131/93 07/13/17 08:22 36.1 67 14 131/93 99 Oxymask 10 07/13/17 08:22 71 95 07/13/17 08:22 71 07/13/17 05:54 36.9 63 18 113/73 (86) 100 Room Air Notes Mental Status: alert / awake / arousable, participated in evaluation Pt Amnestic to Procedure: Yes Nausea / Vomiting: adequately controlled Pain: adequately controlled Airway Patency, RR, SpO2: stable & adequate BP & HR: stable & adequate Hydration State: stable & adequate Anesthetic Complications: no major complications apparent
[2017-07-13 09:20] VITALS: BP 135/91; PULSE 54; TEMP 36.5; O2SAT 97
[2017-07-13 09:50] VITALS: BP 146/84; PULSE 55; O2SAT 97
[2017-07-13 10:20] VITALS: BP 122/87; PULSE 58; TEMP 36.8; O2SAT 96
== END | disposition home or self-care (01) ==
LOC: C.ACU 05:14
PROVIDERS: ATTEND Surgery
DX: D12.1 Benign neoplasm of appendix (principal); K38.8 Other specified diseases of appendix; E11.9 Type 2 diabetes mellitus without complications; E78.5 Hyperlipidemia, unspecified; Z79.899 Other long term (current) drug therapy